=== PATIENT | male | born 1970 | race Caucasian/White ===

== ENCOUNTER 2019-12-18 11:39 | Emergency (ER) | payer SELFPAY ==
--- NOTE | 2019-12-18 14:59 | ER Document Report ---
HPI - HPI Time Seen by Provider: 12/18/19 13:15 Pain Level: 5 Notes: Otherwise healthy 49-year-old male presenting to the emergency department chief complaint of possible abscess to his left thigh. Patient reports he first noticed this about 3 days ago. He is not sure if he got bit by something. He denies any drainage from the area. - CONSTITUTIONAL Constitutional: DENIES: Fever, Chills Past Medical History - General Information source: Patient - Social History Smoking Status: Never Smoker Frequency of alcohol use: None Drug Abuse: Marijuana Family History: Reviewed & Not Pertinent Patient has suicidal ideation: No Patient has homicidal ideation: No - Medical History Medical History: Negative Surgical Hx: Negative - Immunizations Immunizations up to date: Yes Vertical Provider Document - CONSTITUTIONAL Notes: PHYSICAL EXAMINATION: GENERAL: Well-appearing, well-nourished and in no acute distress. HEAD: Atraumatic, normocephalic. EYES: Pupils equal round extraocular movements intact, conjunctiva are normal. ENT: Nares patent NECK: Normal range of motion LUNGS: No respiratory distress Musculoskeletal: Normal range of motion NEUROLOGICAL: Normal speech, normal gait. PSYCH: Normal mood, normal affect. SKIN: Area of induration with fluctuance noted to left thigh, erythema marked with skin marker. - INFECTION CONTROL TRAVEL OUTSIDE OF THE [place] IN LAST 30 DAYS: No Course - Re-evaluation Re-evalutation: Abscess incised and drained, patient tolerated well. Minimal drainage obtained. Patient started on oral antibiotics. The skin was marked with a surgical marker, patient was given strict ED return precautions to return if the erythema extends 2 cm or more outside the borders or if he develops fever. Patient and spouse verbalized understanding and agreement with this plan. - Vital Signs Vital signs: Temp Pulse Resp BP Pulse Ox 97.9 F 63 16 139/91 H 99 12/18/19 11:55 12/18/19 11:55 12/18/19 11:55 12/18/19 11:55 12/18/19 11:55 Procedures - Incision and Drainage Left thigh Type: Simple Anesthetic type: 1% Lidocaine Blade size: 11 I&D procedure: Betadine prep applied Incision Method: Incision made by scalpel Discharge - Discharge Clinical Impression: Abscess Condition: Stable Disposition: HOME, SELF-CARE Additional Instructions: You were seen for an abscess that required drainage. Please clean this area with soap and water twice daily and apply a topical antibiotic. Return to the emergency department if the redness extends about 2 cm past the marking. Dress the area after each cleaning. Please return if you develop fever, vomiting, the pain at the site worsens, you notice spreading redness from the area, or you have any other symptoms that are concerning to you. Prescriptions: Sulfamethoxazole/Trimethoprim [Bactrim Ds Tablet] 1 tab PO BID #14 tablet Cephalexin [Keflex] 500 mg PO BID #14 capsule Referrals: LOCALMD,NO [NO LOCAL MD] - Follow up as needed
[2019-12-18 15:10] VITALS: BP 147/81
== END 2019-12-18 15:12 | disposition home or self-care (01) ==
LOC: ER 11:39
DX: L02.416 Cutaneous abscess of left lower limb (principal)
CPT/HCPCS: 87070; 87077; 87186; 87205; 99283

== ENCOUNTER 2020-01-04 10:09 | Emergency (ER) | payer SELFPAY ==
--- NOTE | 2020-01-04 10:56 | ER Document Report ---
ED Medical Screen (RME) - General Chief Complaint: Skin Sore(s) Stated Complaint: OPEN SORE/LEFT THIGH Time Seen by Provider: 01/04/20 10:54 TRAVEL OUTSIDE OF THE [place] IN LAST 30 DAYS: No - HPI Notes: 01/04/20 10:58 Patient is a 49-year-old male who presents complaining of worsening redness over the past couple days after being treated with an antibiotic for MRSA to his left thigh at the end of November. Denies drug allergies. He is able to eat and drink without difficulty. No other recent illness. No fever, chest pain, shortness breath, abdominal pain. I have treated and performed a rapid initial assessment of this patient. A comprehensive ED assessment and evaluation of the patient, analysis of test results and completion of medical decision making process will be conducted by additional ED providers. PHYSICAL EXAMINATION: GENERAL: Well-appearing, well-nourished and in no acute distress. A&Ox4. Answers questions appropriately. Lt thigh: there is erythema, warmth noted left anterior mid thigh. + mild tenderness. No obvious abscess/fluctuance. - Related Data Allergies/Adverse Reactions: No Known Allergies Allergy (Unverified 12/18/19 12:59) Past Medical History - Immunizations Immunizations up to date: Yes Physical Exam - Vital signs Vitals: Temp Pulse Resp BP Pulse Ox 98.1 F 58 L 16 141/90 H 97 01/04/20 10:13 01/04/20 10:13 01/04/20 10:13 01/04/20 10:13 01/04/20 10:13 Course - Vital Signs Vital signs: Temp Pulse Resp BP Pulse Ox 98.1 F 58 L 16 141/90 H 97 01/04/20 10:13 01/04/20 10:13 01/04/20 10:13 01/04/20 10:13 01/04/20 10:13
[2020-01-04 11:50] LABS: HEMATOCRIT 46.3 % (37.9-51.0); MEAN CORPUSCULAR HEMOGLOBIN 30.3 pg (27.0-33.4); MEAN CORPUSCULAR HGB CONC 34.5 g/dL (32.0-36.0); MEAN CORPUSCULAR VOLUME 88 fl (80-97); PLATELET COUNT 229 10^3/uL (150-450); RED BLOOD COUNT 5.28 10^6/uL (4.35-5.55); RED CELL DISTRIBUTION WIDTH 13.8 % (11.5-14.0); WHITE BLOOD COUNT 5.3 10^3/uL (4.0-10.5)
[2020-01-04 12:06] LABS: ALBUMIN 4.2 g/dL (3.5-5.0); ALKALINE PHOSPHATASE 118 U/L (38-126); ANION GAP 10 (5-19); ASPARTATE AMINO TRANSFERASE 112 U/L (17-59); BILIRUBIN,DIRECT 0.2 mg/dL (0.0-0.4); BILIRUBIN,TOTAL 0.7 mg/dL (0.2-1.3); BLOOD UREA NITROGEN 13 mg/dL (7-20); CALCIUM 9.4 mg/dL (8.4-10.2); CARBON DIOXIDE 27 mmol/L (22-30); CHLORIDE 105 mmol/L (98-107); GLUCOSE 88 mg/dL (75-110); POTASSIUM 4.6 mmol/L (3.6-5.0); TOTAL PROTEIN 7.6 g/dL (6.3-8.2)
[2020-01-04 12:54] LABS: ABSOLUTE LYMPHOCYTES# (MANUAL) 0.7 10^3/uL (0.5-4.7); ABSOLUTE MONOCYTES # (MANUAL) 1.2 10^3/uL (0.1-1.4); BASOPHILS % (MANUAL) 0 % (0-2); EOSINOPHILS % (MANUAL) 4 % (0-6); LYMPHOCYTES % (MANUAL) 14 % (13-45); MONOCYTES % (MANUAL) 22 % (3-13); SEGMENTED NEUTROPHILS % (MAN) 60 % (42-78); TOTAL CELLS COUNTED 100
[2020-01-04 12:55] LABS: TOXIC GRANULATION 1+; TOXIC VACUOLATION PRESENT
[2020-01-04 13:01] LABS: RBC MORPHOLOGY COMMENT NORMO-CYTIC/CHROMIC
[2020-01-04 13:02] LABS: PLATELET COMMENT ADEQUATE
--- NOTE | 2020-01-04 14:03 | ER Document Report ---
ED General - General Chief Complaint: Skin Sore(s) Stated Complaint: OPEN SORE/LEFT THIGH Time Seen by Provider: 01/04/20 10:54 Notes: Patient is a 49-year-old white male with a past medical history of MRSA who was seen here about 17 days ago for an abscess formation to the proximal anterior left thigh returns today with a chief complaint of irritation surrounding the area of wound. He states he took Keflex and Bactrim for 7 days in totality. States that the abscess formation itself seem to be doing really well however he started to notice in the areas where he was applying the bandage with tape skin markings that were erythematous in the shape and locations where the tape was applied. He states those areas have begun to expand over time. He states he just recently discontinued utilizing the tape and started using a soft bandage wrap. Has been applying antibiotic ointment to the entire area. Denies any worsening of the abscess area itself. States that it has seemed to mostly go away without any further drainage swelling or pain. He denies any fever, nausea, vomiting, diarrhea, chills, night sweats. TRAVEL OUTSIDE OF THE [place] IN LAST 30 DAYS: No - Related Data Allergies/Adverse Reactions: No Known Allergies Allergy (Verified 01/04/20 12:30) Past Medical History - Social History Smoking Status: Unknown if Ever Smoked Frequency of alcohol use: None Drug Abuse: None Family History: Reviewed & Not Pertinent Patient has suicidal ideation: No Patient has homicidal ideation: No Past Surgical History: Reports: Hx Orthopedic Surgery - Immunizations Immunizations up to date: Yes Review of Systems - Review of Systems Skin: Rash -: Yes All other systems reviewed and negative Physical Exam - Vital signs Vitals: Temp Pulse Resp BP Pulse Ox 98.1 F 58 L 16 141/90 H 97 01/04/20 10:13 01/04/20 10:13 01/04/20 10:13 01/04/20 10:13 01/04/20 10:13 - General General appearance: Appears well, Alert In distress: None - Respiratory Respiratory status: No respiratory distress Chest status: Nontender Breath sounds: Normal Chest palpation: Normal - Cardiovascular Rhythm: Regular Heart sounds: Normal auscultation - Neurological Neuro grossly intact: Yes Cognition: Normal Orientation: AAOx4 [place] Coma Scale Eye Opening: Spontaneous [place] Coma Scale Verbal: Oriented Joy Coma Scale Motor: Obeys Commands Joy Coma Scale Total: 15 Speech: Normal Sensory: Normal - Psychological Associated symptoms: Normal affect, Normal mood - Skin Skin Temperature: Warm Skin Color: Other - Erythematous area to the left anterior thigh surrounding the area of wound, there are clear demarcations that appear in the pattern of tape to the same area. Consistent with contact dermatitis from the tape. Course - Re-evaluation Re-evalutation: 01/04/20 14:01 Abscess formation is seem to heal routinely. He does appear to have a dermatitis secondary to the application and repeated application of tape. He will discontinue the use of tape, use dry gauze wrap and utilize triamcinolone cream. Counseled him regarding the importance of outpatient follow-up in 2 to 3 days. Advised to return here or any ER immediately with any new, persistent or worsening symptoms. He verbalized understood and agreed. - Vital Signs Vital signs: Temp Pulse Resp BP Pulse Ox 98.1 F 58 L 16 141/90 H 97 01/04/20 10:13 01/04/20 10:13 01/04/20 10:13 01/04/20 10:13 01/04/20 10:13 - Laboratory Result Diagrams: 01/04/20 11:21 01/04/20 11:21 Laboratory results interpreted by me: 01/04/20 01/04/20 11:21 11:21 Monocytes % (Manual) 22 H AST 112 H Discharge - Discharge Clinical Impression: Contact dermatitis Qualifiers: Contact dermatitis type: unspecified Contact dermatitis trigger: unspecified trigger Qualified Code(s): L25.9 - Unspecified contact dermatitis, unspecified cause Condition: Stable Disposition: HOME, SELF-CARE Instructions: Contact Dermatitis ([facility]) Additional Instructions: Follow-up with your regular doctor in 2 to 3 days for reevaluation. Return here or any ER immediately with any new, persistent or worsening symptoms. Prescriptions: Triamcinolone Acetonide [Aristocort 0.1% Cream] 1 applic TP BID #1 tub
[2020-01-04 14:12] VITALS: BP 128/79
== END 2020-01-04 14:14 | disposition home or self-care (01) ==
LOC: ER 10:09
DX: L25.9 Unspecified contact dermatitis, unspecified cause (principal); Z86.14 Personal history of Methicillin resistant Staphylococcus aureus infection
CPT/HCPCS: 36415; 80053; 85025; 87040